=== PATIENT | male | born 1980 | race Caucasian/White ===

== ENCOUNTER 2017-07-23 21:05 | Inpatient (IN) | payer OTHER ==
[~2017-07-23] VITALS: Ht 175.3 cm; Wt 75.5 kg
[~2017-07-23 21:05] MED LIST: MULTI-DAY VITA1 EACH; PREDNISONE20 MG PO; ZYRTEC10 M2 PO
[2017-07-23 22:08] LABS: HEMATOCRIT 52.1 % (38.0-50.0); HEMOGLOBIN 18.4 G/DL (12.5-16.6); MCH 29.1 PG (29.0-34.0); MCHC 35.3 G/DL (30.0-36.0); MCV 82.3 FL (86-99); PLATELET COUNT 242 K/uL (156-360); RBC DIS.WIDTH-CV 13.7 % (11.8-14.6); RBC DIS.WIDTH-SD 40.7 % (39-53); RED BLOOD COUNT 6.33 M/uL (4.00-5.50); WHITE BLOOD COUNT 9.7 K/uL (4.1-10.2)
[2017-07-23 22:11] LABS: ALBUMIN 4.5 g/dL (3.2-4.8)
[2017-07-23 22:12] LABS: CHLORIDE 96 mEq/L (99-109); POTASSIUM 4.3 mEq/L (3.7-5.4); SODIUM 133 mEq/L (136-147)
[2017-07-23 22:14] LABS: GLUCOSE 103 mg/dL (70-99); TOTAL PROTEIN 7.4 g/dL (6.4-8.3)
[2017-07-23 22:16] LABS: TOTAL BILIRUBIN 0.6 mg/dL (0.0-1.0)
[2017-07-23 22:17] LABS: ALKALINE PHOSPHATASE 101 IU/L (3-129)
[2017-07-23 22:18] LABS: CREATININE 1.9 mg/dL (0.6-1.3); GFR ESTIMATE (CALCULATED) 43 mL/min/ (58.99-99999)
[2017-07-23 22:19] LABS: AST (GOT) 52 IU/L (2-34); UREA NITROGEN (BUN) 18 mg/dL (9-23)
[2017-07-23 22:32] LABS: SERUM ETHYL ALCOHOL < 10 mg/dL
[2017-07-23 22:35] LABS: ALT (GPT) 54 IU/L (3-49); LIPASE 36 U/L (1.0-51.0)
[2017-07-23 22:36] LABS: CREATINE KINASE 272 IU/L (1-294)
[2017-07-23 22:40] LABS: TROP-I INTERPRETATION NEGATIVE; TROPONIN-I < 0.01 ng/mL (0.0-0.30)
[2017-07-24 00:25] LABS: APPEARANCE CLOUDY ((CLEAR)); BILIRUBIN NEGATIVE; BLOOD NEGATIVE; COLOR AMBER ((YELLOW)); GLUCOSE (STRIP) NEGATIVE; KETONES 20; LEUKOCYTES NEGATIVE; NITRITE NEGATIVE; PROTEIN (STRIP) 100; SPECIFIC GRAVITY 1.023 (1.000-1.030)
[2017-07-24 00:31] LABS: BACTERIA RARE /HPF; EPITHELIAL CELLS RARE /HPF; HYALINE CASTS 40-50 /LPF; MUCUS 1+ /LPF; RED BLOOD CELLS 0-5 /HPF (0-5); UCUL ADDED? YES
[2017-07-24 01:56] LABS: BASOPHIL (%) 0.2 % (0-1); EOSINOPHIL (%) 0.6 % (0-5); EOSINOPHIL COUNT 0.1 K/uL (0-0.3); IMMATURE GRANULOCYTE (%) 0.6 % (0.0-0.7); LYMPHOCYTE (%) 14.2 % (15-42); LYMPHOCYTE COUNT 1.4 K/uL (1.0-2.8); MONOCYTE COUNT 0.8 K/uL (0-0.8); NEUTROPHIL (%) 76.4 % (45-76); NEUTROPHIL COUNT 7.3 K/uL (1.8-6.4)
[2017-07-24 02:39] LABS: MONOSPOT (MONONUCLEOSIS SEROL) NEGATIVE
[2017-07-24 04:59] VITALS: BP 136/73
[2017-07-24 08:07] VITALS: BP 117/58
[2017-07-24 09:19] LABS: HEMATOCRIT 48.5 % (38.0-50.0); HEMOGLOBIN 16.6 G/DL (12.5-16.6); MCHC 34.2 G/DL (30.0-36.0); MCV 81.8 FL (86-99); PLATELET COUNT 206 K/uL (156-360); RBC DIS.WIDTH-CV 13.6 % (11.8-14.6); RBC DIS.WIDTH-SD 40.5 % (39-53); RED BLOOD COUNT 5.93 M/uL (4.00-5.50); WHITE BLOOD COUNT 6.6 K/uL (4.1-10.2)
[2017-07-24 09:43] LABS: CHLORIDE 101 MEQ/L (99-109); GLUCOSE 94 mg/dL (70-99); POTASSIUM 4.7 MEQ/L (3.7-5.4); SODIUM 134 MEQ/L (136-147); UREA NITROGEN (BUN) 12 mg/dL (9-23)
[2017-07-24 09:44] LABS: CREATININE 1.1 MG/DL (0.6-1.3); GFR ESTIMATE (CALCULATED) > 59 mL/min/ (58.99-99999)
[2017-07-24 10:47] LABS: HEPATITIS B SURFACE ANTIGEN Nonreactive; HEPATITIS C ANTIBODY Nonreactive
[2017-07-24] MEDS ORDERED: MULTIVITAMIN1 EAC2 PO (10:48)
[2017-07-24] MEDS ORDERED: LISINOPRIL30 MG PO (10:48)
[2017-07-24] MEDS ORDERED: ALLEGRA ALLERGY60 MG PO (10:48)
[2017-07-24 10:49] LABS: ANTI-HEPATITIS A VIRUS (IGM) Nonreactive; ANTI-HEPATITIS B CORE (IGM) Nonreactive
[2017-07-24 13:48] LABS: C DIFF TOXIN NEGATIVE (NEGATIVE)
[2017-07-24 14:00] VITALS: BP 128/62
[2017-07-24 15:33] VITALS: BP 135/65
[2017-07-24 20:50] VITALS: BP 137/80
[2017-07-25 01:01] VITALS: BP 128/72
[2017-07-25 04:43] VITALS: BP 114/62
[2017-07-25 06:07] LABS: HEMOGLOBIN 15.8 G/DL (12.5-16.6); MCHC 34.3 G/DL (30.0-36.0); MCV 81.4 FL (86-99); PLATELET COUNT 197 K/uL (156-360); RBC DIS.WIDTH-CV 13.2 % (11.8-14.6); RBC DIS.WIDTH-SD 38.8 % (39-53); RED BLOOD COUNT 5.65 M/uL (4.00-5.50); WHITE BLOOD COUNT 5.4 K/uL (4.1-10.2)
[2017-07-25 06:37] LABS: CHLORIDE 99 MEQ/L (99-109); CREATININE 0.9 MG/DL (0.6-1.3); GFR ESTIMATE (CALCULATED) > 59 mL/min/ (58.99-99999); GLUCOSE 121 mg/dL (70-99); POTASSIUM 4.6 MEQ/L (3.7-5.4); SODIUM 136 MEQ/L (136-147); UREA NITROGEN (BUN) 12 mg/dL (9-23)
[2017-07-25 07:21] VITALS: BP 132/54
[2017-07-25 07:58] LABS: ALBUMIN 4.1 G/DL (3.2-4.8); ALKALINE PHOSPHATASE 67 IU/L (3-129); ALT (GPT) 27 IU/L (3-49); AST (GOT) 24 IU/L (2-34); DIRECT BILIRUBIN 0.1 mg/dL (0.0-0.3); TOTAL BILIRUBIN 0.6 MG/DL (0.0-1.0); TOTAL PROTEIN 6.4 G/DL (6.4-8.3)
[2017-07-25 11:05] VITALS: BP 124/79
== END 2017-07-25 12:12 | disposition home or self-care (01) | DRG 682 ==
LOC: EME 21:05 → EDOF 07-24 03:43 → ENRESERV 07-24 03:51 → 5SOUTH 07-24 04:38
PROVIDERS: Emergency Medicine; Internal Medicine
DX: N17.9 Acute kidney failure, unspecified (principal); K85.20 Alcohol induced acute pancreatitis without necrosis or infection; J98.11 Atelectasis; F17.210 Nicotine dependence, cigarettes, uncomplicated; A08.4 Viral intestinal infection, unspecified; E06.3 Autoimmune thyroiditis; F10.10 Alcohol abuse, uncomplicated; I10 Essential (primary) hypertension; I95.9 Hypotension, unspecified; R16.2 Hepatomegaly with splenomegaly, not elsewhere classified; R53.83 Other fatigue; R59.1 Generalized enlarged lymph nodes; Y90.0 Blood alcohol level of less than 20 mg/100 ml; L50.9 Urticaria, unspecified; Z88.0 Allergy status to penicillin; Z79.52 Long term (current) use of systemic steroids; Z82.49 Family history of ischemic heart disease and other diseases of the circulatory system; Z83.3 Family history of diabetes mellitus
CPT/HCPCS: 71045; 74176; 80048; 80053; 80074; 80076; 81003; 82550; 83605; 83630; 83690; 84484; 85025; 85027; 86308; 87040; 87086; 87177; 87329; 87493; 87506; 93005; 99281; 99285; G0480; J1650; J1956; J2920; J7030; S0028